=== PATIENT | female | born 1990 | race African-American/Black ===

== ENCOUNTER 2019-08-02 10:12 | Emergency (ER) | payer OTHER, SELFPAY ==
[2019-08-02 10:21] VITALS: BP 140/88; PULSE 92; RESP 21; TEMP 36.9; O2SAT 100
--- NOTE | 2019-08-02 10:28 | ED_ITS ---
I attest that this documentation has been prepared under the direction and in the presence of . Zackery Ricardo Scribe 08/02/19;10:33 HPI - URI/Sore Throat General Chief Complaint: Upper Respiratory Infection Stated Complaint: diarrhea and cough Time Seen by Provider: 08/02/19 10:26 History of Present Illness HPI Narrative: Pt is a 28 y/o female who presents to the ED with c/o a cough that started yesterday. Pt states that she had rhinorrhea yesterday morning and she took some Tylenol and drank a Theraflu. Pt states that her daughter had Flu B and she drank some of her daughter Tamiflu as well. Pt states that last night she was having night sweats and this morning she had diarrhea ay morning0 thought it would make her feel better- drank a theraflu last night sweating diarrhea started this mronign twice no NV or ABD pain myalgia last night no medicine today daughter had flu B smoekr took daughter tamiflu Related Data Allergies Allergy/AdvReac Type Severity Reaction Status Date / Time tomato Allergy Unknown Unknown Verified 08/02/19 10:25 Iodinated Contrast Media Allergy Hives Verified 08/02/19 10:26 [facility] Social History Social History Gender identity (if verbalized by the patient): Female Exam Narrative: Exam Narrative: GENERAL: Well-appearing, well-nourished, and in no acute distress. HEAD: Normocephalic, atraumatic. ENT: Mucous membranes moist. No pharyngeal erythema or tonsillar exudate. NECK: Right anterior cervical chain lymphadenopathy. Nontender. CHEST: Clear to auscultation. No respiratory distress. HEART: Regular rate and rhythm. Normal peripheral pulses. EXTREMITIES: Normal range of motion. No edema. NEURO: Alert and oriented x3. Course Course Emergency Course: Flu B positive. D/c home with tamiflu. Vital Signs Vital signs: Vital Signs Temperature 98.4 F 08/02/19 10:21 Pulse Rate 92 08/02/19 10:21 Respiratory Rate 21 H 08/02/19 10:21 Blood Pressure 140/88 08/02/19 10:21 Pulse Oximetry 100 08/02/19 10:21 Temperature 98.4 F 08/02/19 10:21 Pulse Rate 92 08/02/19 10:21 Respiratory Rate 21 H 08/02/19 10:21 Blood Pressure 140/88 08/02/19 10:21 Pulse Oximetry 100 08/02/19 10:21 MDM - URI/Sore Throat Lab Data Labs: Influenza A Screen Negative Reference Range: Negative Influenza B Screen Positive Reference Range: Negative Discharge Plan Discharge Clinical Impression: Influenza B Patient Disposition: Home, Self-Care Condition: Stable Instructions: Influenza (ED) Additional Instructions: Return the ER if you you cannot keep down food or water, you lose consciousness, you are having difficulty breathing, you have additional concerns. Take Tylenol and ibuprofen for fever and body aches. Prescriptions: New oseltamivir 75 mg capsule 75 mg PO BID Qty: 10 RF: 0 Follow-up/Referrals: Damaso Velazquez MD [Physician] - 1 Week PHYSICIAN,MAINTENANCE AND CUSTODIAN SUPERVISOR [Primary Care Provider] - I personally performed the services described in this documentation. All medical record entries made by the scribe were at my direction and in my presence. I have rev
--- NOTE | 2019-08-02 10:28 | ED.URI ---
HPI - URI/Sore Throat General Chief Complaint: Upper Respiratory Infection Stated Complaint: diarrhea and cough Time Seen by Provider: 08/02/19 10:26 Source: patient Mode of arrival: ambulatory Limitations: no limitations History of Present Illness HPI Narrative: Pt is a 28 y/o female who presents to the ED with c/o a cough that started yesterday. Pt states that she had rhinorrhea yesterday morning and she took some Tylenol and drank a Theraflu. Pt states that her daughter had Flu B and she drank some of her daughter Tamiflu as well. Pt states that last night she was having night sweats and myalgia, and this morning she had diarrhea twice. She denies N/V or ABD pain. Pt did not take any medicine today and she is a smoker. MD elicited complaint: cough Onset (ago): day(s) (1) Consistency: constant Able to tolerate fluids by mouth: Yes Context: sick contacts Associated symptoms: myalgias, rhinorrhea, diarrhea and other (night sweats) Treatments prior to arrival: acetaminophen and other (theraflu and tamiflu) Related Data Allergies Allergy/AdvReac Type Severity Reaction Status Date / Time tomato Allergy Unknown Unknown Verified 08/02/19 10:25 Iodinated Contrast Media Allergy Hives Verified 08/02/19 10:26 Review of Systems Review of Systems: All systems reviewed & are unremarkable except as noted in HPI and below ENT: Reports other (rhinorrhea) Respiratory: Respiratory: Reports cough Gastrointestinal: Gastrointestinal: Denies abdominal pain, Reports diarrhea, Denies nausea and Denies vomiting PMFSH Past Medical History Medical History (Updated 08/02/19 @ 10:46 by Zackery Ricardo) No significant past medical history Surgical History Surgical History (Updated 08/02/19 @ 10:46 by Zackery Ricardo) No significant past surgical history Social History Social History (Updated 08/02/19 @ 10:47 by Zackery Ricardo) Smoking status: Current every day smoker Gender identity (if verbalized by the patient): Female Exam Narrative: Exam Narrative: GENERAL: Well-appearing, well-nourished, and in no acute distress. HEAD: Normocephalic, atraumatic. ENT: Mucous membranes moist. No pharyngeal erythema or tonsillar exudate. NECK: Right anterior cervical chain lymphadenopathy. Nontender. CHEST: Clear to auscultation. No respiratory distress. HEART: Regular rate and rhythm. Normal peripheral pulses. EXTREMITIES: Normal range of motion. No edema. NEURO: Alert and oriented x3. Course Course Emergency Course: Flu B positive. D/c home with tamiflu. Vital Signs Vital signs: Vital Signs Temperature 98.4 F 08/02/19 10:21 Pulse Rate 92 08/02/19 10:21 Respiratory Rate 21 H 08/02/19 10:21 Blood Pressure 140/88 08/02/19 10:21 Pulse Oximetry 100 08/02/19 10:21 Temperature 98.4 F 08/02/19 10:21 Pulse Rate 92 08/02/19 10:21 Respiratory Rate 21 H 08/02/19 10:21 Blood Pressure 140/88 08/02/19 10:21 Pulse Oximetry 100 08/02/19 10:21 MDM - URI/Sore Throat Lab Data Labs: Influenza A Screen Negative Reference Range: Negative Influenza B Screen Positive Reference Range: Negative Discharge Plan Discharge Clinical Impression: Influenza B Patient Disposition: Home, Self-Care Condition: Stable Instructions: Influenza (ED) Additional Instructions: Return the ER if you you cannot keep down food or water, you lose consciousness, you are having difficulty breathing, you have additional concerns. Take Tylenol and ibuprofen for fever and body aches. Prescriptions: New oseltamivir 75 mg capsule 75 mg PO BID Qty: 10 RF: 0 Follow-up/Referrals: Damaso Velazquez MD [Physician] - 1 Week PHYSICIAN,GLUING CREW LEADER [Primary Care Provider] -
[2019-08-02 11:10] VITALS: BP 118/69; PULSE 80; RESP 16; O2SAT 100
== END 2019-08-02 11:12 | disposition home or self-care (01) ==
PROVIDERS: Emergency Provider Emergency Medicine
DX: J11.1 Influenza due to unidentified influenza virus with other respiratory manifestations (principal)
CPT/HCPCS: 87804; 99283

== ENCOUNTER 2020-03-26 08:57 | Outpatient (CLI) | payer OTHER, SELFPAY ==
--- NOTE | 2020-03-26 11:00 | NEURO_ITS ---
Patient Number: [id number] Impression: # Complains of pain in right shoulder joint. # Normal nerve conduction study including F-waves. # Normal needle/EMG exam. # Clinical correlation recommended. Nerve Conduction Studies Anti Sensory Summary Table Stim Site NR Peak (ms) P-T Amp (?V) Site1 Site2 Delta-P (ms) Dist (cm) Haider (m/s) Right Median Anti Sensory (2-3nd Digit) Wrist 2.7 98.4 Wrist 2-3nd Digit 2.7 14.0 52 Wrist 2.6 67.9 Wrist 2-3nd Digit 2.7 14.0 52 Right Radial Anti Sensory (Base 1st Digit) Wrist 2.1 22.0 Wrist Base 1st Digit 2.1 0.0 Right Ulnar Anti Sensory (5th Digit) Wrist 2.1 68.6 Wrist 5th Digit 2.1 14.0 67 Motor Summary Table Stim Site NR Onset (ms) O-P Amp (mV) Site1 Site2 Delta-0 (ms) Dist (cm) Haider (m/s) Right Median Motor (Abd Poll Brev) Wrist 2.9 6.7 Elbow Wrist 5.2 29.0 56 Elbow 8.1 3.5 Right Ulnar Motor (Abd Dig Minimi) Wrist 2.3 4.0 A Elbow Wrist 4.9 29.0 59 A Elbow 7.2 3.2 F Wave Studies NR F-Lat (ms) L-R F-Lat (ms) Right Median (Mrkrs) (Abd Poll Brev) 25.50 Right Ulnar (Mrkrs) (Abd Dig Min) 26.41 EMG Side Muscle Nerve Root Ins Act Fibs Amp Dur Recrt Comment Right 1stDorInt Ulnar C8-T1 Nml Nml Nml Nml Nml Right Ext Indicis Radial (Post Int) C7-8 Nml Nml Nml Nml Nml Right Ext Digitorum Radial (Post Int) C7-8 Nml Nml Nml Nml Nml Right BrachioRad Radial C5-6 Nml Nml Nml Nml Nml Right PronatorTeres Median C6-7 Nml Nml Nml Nml Nml Right Abd Poll Brev Median C8-T1 Nml Nml Nml Nml Nml Right ABD Dig Min Ulnar C8-T1 Nml Nml Nml Nml Nml MTDD
== END 2020-03-26 08:58 | disposition home or self-care (01) ==
PROVIDERS: PCP Family Medicine; Visit Provider Family Medicine
DX: M25.511 Pain in right shoulder (principal)
CPT/HCPCS: 95886; 95909

== ENCOUNTER 2020-04-30 09:00 | Emergency (ER) | payer OTHER, SELFPAY ==
--- NOTE | ~2020-04-30 | XR_ITS ---
EXAMINATION: XR toe 1st LT min 2V EXAM DATE: 04/30/2020 09:31 INDICATION: Hit toe on glass table, laceration, pain. TECHNIQUE: Left 1st toe frontal, lateral and oblique projections obtained and reviewed. There is n o prior study for comparison. FINDINGS: There are no acute left 1st toe fractures or dislocations identified. There is no subcutan eous gas. Probable toe laceration identified. There are no radiopaque foreign bodies. IMPRESSION: No acute osseous findings. Probable laceration. Reviewed, dictated and finalized at location B. ON CREAM WARMER
[2020-04-30 09:05] VITALS: BP 151/91; PULSE 90; RESP 20; TEMP 36.6; O2SAT 96
--- NOTE | 2020-04-30 09:13 | ED.WOUNDLAC ---
HPI - Wound/Laceration General Chief Complaint: Wound/Laceration Stated Complaint: wound to foot Time Seen by Provider: 04/30/20 09:07 Source: patient Mode of arrival: ambulatory Limitations: no limitations History of Present Illness HPI narrative: This is a 29-year-old female that presents the emergency department for laceration to left great toe sustained just prior to arrival. Reports she was moving a table and got the toe caught on something. Reports she noted blood in the sock and then saw she had a cut. Reports throbbing pain to the area. Reports she is up-to-date on tetanus. Denies decreased range of motion or numbness. Related Data Allergies Allergy/AdvReac Type Severity Reaction Status Date / Time tomato Allergy Unknown Unknown Verified 04/30/20 09:18 Iodinated Contrast Media Allergy Hives Verified 04/30/20 09:18 Review of Systems Review of Systems: Narrative: CONSTITUTIONAL: Denies fever SKIN: Reports laceration MUSCULOSKELETAL: Reports joint pain NEUROLOGIC: Denies numbness All systems reviewed & are unremarkable except as noted in HPI and below PMFSH Past Medical History Medical History (Updated 04/30/20 @ 10:36 by Molly Mary PA-C) No significant past medical history Surgical History Surgical History (Updated 08/02/19 @ 10:46 by Zackery Ricardo) No significant past surgical history Social History Social History (Updated 04/30/20 @ 09:15 by Molly Mary PA-C) Smoking status: Former smoker Gender identity (if verbalized by the patient): Female Exam Narrative: Exam Narrative: GENERAL: Well-appearing, well-nourished, and in no acute distress. HEAD: Normocephalic, atraumatic. EYES: EOMI. EXTREMITIES: Normal range of motion. No edema or obvious deformity. Left great toe with 2.5 cm linear laceration into subcutaneous tissue over the distal phalanx SKIN: Warm, dry, no rash. NEURO: No focal deficits. Alert and oriented x3. PSYCH: Normal mood and affect Course Vital Signs Vital signs: Vital Signs Temperature 97.8 F 04/30/20 09:05 Pulse Rate 90 04/30/20 09:05 Respiratory Rate 20 04/30/20 09:05 Blood Pressure 151/91 H 04/30/20 09:05 Pulse Oximetry 96 04/30/20 09:05 Temperature 97.8 F 04/30/20 09:05 Pulse Rate 90 04/30/20 09:05 Respiratory Rate 20 04/30/20 09:05 Blood Pressure 151/91 H 04/30/20 09:05 Pulse Oximetry 96 04/30/20 09:05 Procedures Laceration Laceration 1: Date: 04/30/20 Time: 10:35 Site: lower extremity Side (If applicable): left Size (cm): 2.5 Description: linear Depth: simple, single layer Local Anesthetic: lidocaine 1% Amount of anesthesia used (mL): 3 Pre-repair: irrigated ====== Skin Level ====== Skin layer closed with: nylon Size (cm): 4-0 Number of sutures: 3 Technique: simple, interrupted ====== Subcutaneous Layer ====== ====== Muscle Layer ====== ====== Tendon Layer ====== MDM - Wound/Laceration MDM Narrative Medical decision making narrative: Patient presents the emergency department for laceration of the left first toe sustained just prior to arrival. Patient is up-to-date on tetanus. Wound was irrigated and closed with sutures. Left first toe x-rays without acute osseous abnormalities. Patient was educated on wound care. She is to follow-up with primary care doctor. She was given warnings to return to the ER Imaging Data Radiologist's impression: ITS Impressions Toe X-Ray 04/30/20 09:40 IMPRESSION: No acute osseous findings. Probable laceration. Critical Care Time Critical Care Time Critical Care Time: No Discharge Plan Discharge Clinical Impression: Laceration Patient Disposition: Home, Self-Care Condition: Stable Instructions: Care For Your Stitches (ED), Laceration (ED) Additional Instructions: Return to the emergency department if you experience fe
[2020-04-30] MEDS: IBUPROFEN 600 MG TABLET PO (10:13)
[2020-04-30 10:59] VITALS: BP 157/94; PULSE 78; RESP 18; O2SAT 99
== END 2020-04-30 10:59 | disposition home or self-care (01) ==
PROVIDERS: Emergency Provider Emergency Medicine; PCP Family Medicine
DX: S91.112A Laceration without foreign body of left great toe without damage to nail, initial encounter (principal); Z87.891 Personal history of nicotine dependence; W22.03XA Walked into furniture, initial encounter
CPT/HCPCS: 12001; 73660; 99283; A9270

== ENCOUNTER 2020-06-24 14:03 | Emergency (ER) | payer OTHER, SELFPAY ==
--- NOTE | ~2020-06-24 | XR_ITS ---
EXAMINATION: XR wrist LT 2V DATE: 06/24/2020 14:36 INDICATION: Left wrist pain. TECHNIQUE: 2 views of left wrist were obtained. COMPARISON: None. FINDINGS: Bone alignment is normal. No fracture. Joint spaces are well maintained. IMPRESSION: 1. Normal left wrist. Reviewed, dictated and finalized at location B. NCIAL DEVELOPER IMPRESSION: 1. Normal left wrist.
[2020-06-24 14:04] VITALS: BP 140/82; PULSE 90; RESP 20; TEMP 35.8; O2SAT 98
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
--- NOTE | 2020-06-24 15:12 | PC.NURSE ---
[place] wrap applied to left wrist as ordered.
== END 2020-06-24 15:09 | disposition home or self-care (01) ==
PROVIDERS: Emergency Provider Emergency Medicine; PCP Family Medicine
DX: S66.912A Strain of unspecified muscle, fascia and tendon at wrist and hand level, left hand, initial encounter (principal); S63.502A Unspecified sprain of left wrist, initial encounter; Z87.891 Personal history of nicotine dependence; V86.55XA Driver of 3- or 4- wheeled all-terrain vehicle (ATV) injured in nontraffic accident, initial encounter
CPT/HCPCS: 73100; 99283

== ENCOUNTER 2024-02-18 09:50 | Emergency (ER) | payer OTHER, SELFPAY ==
[2024-02-18 10:00] VITALS: BP 141/80; PULSE 90; RESP 20; TEMP 36.5; O2SAT 98
--- NOTE | 2024-02-18 10:01 | ED.BACK ---
HPI - Back Pain/Injury General Chief Complaint: Back Pain/Injury Stated Complaint: sciatica Time Seen by Provider: 02/18/24 10:00 Source: patient Mode of arrival: ambulatory Limitations: no limitations History of Present Illness HPI Narrative: Patient presents with back pain. States she believes it is sciatica as she has dealt with this before. It initially started on her left but then she had someone help her with stretching on either Tuesday or and now it has developed into her right side. She denies any saddle anesthesia, bowel or bladder incontinence. 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 in [place]. Not on anticoagulation, no abdominal pain, denies IV drug use. She took Tylenol twice but states it did not really help. She has not taken anything for pain today or yesterday. She denies any paresthesias. The last time she had issues sciatica was approximately 1 or 2 years ago. She had already been feeling better at that time when she went to a chiropractor and then she started to feel worse but then had resolution. Related Data Allergies Allergy/AdvReac Type Severity Reaction Status Date / Time tomato Allergy Unknown Unknown Verified 06/24/20 14:10 Iodinated Contrast Media Allergy Hives Verified 06/24/20 14:10 [facility] Past Medical History Medical History (Updated 02/18/24 @ 10:25 by Macy Johnston MD) No significant past medical history Sciatica Surgical History Surgical History (Updated 08/02/19 @ 10:46 by Zackery Ricardo) No significant past surgical history Social History Social History Smoking status: Former smoker Other substance usage details: Denies IV drug use Occupation/Education: occupation Additional occupation/education comments: driver trainer Gender identity (if verbalized by the patient): Female Exam Narrative: GENERAL: Well-appearing, well-nourished, and in no acute distress. HEAD: Normocephalic, atraumatic. EYES: Non injected, non icteric ENT: Nares clear, no rhinorrhea or epistaxis. NECK: Supple. CHEST: Speaking in full sentences. No respiratory distress. HEART: Regular rate and rhythm. ABDOMEN: Soft, nondistended. BACK: Normal curvature. No tenderness to palpation thoracic or lumbar spine which are midline. No paravertebral tenderness. No appreciable muscle spasms. Straight leg test negative bilaterally. Pelvis stable to compression. Mild tenderness to palpation of gluteal muscles which are without significant atrophy or fasciculation. Demonstrates flexion and extension at lumbar spine. EXTREMITIES: Normal range of motion. No lower extremity edema. Patient demonstrates 5/5 bilateral strength with ankle dorsiflexion and plantar flexion, knee extension and flexion, and hip flexion, abduction, and adduction. SKIN: Warm, dry, no rash. NEURO: No focal deficits. Alert and oriented x3. Brisk patellar reflexes symmetrically. Sensation intact throughout bilateral lower extremities. PSYCH: Normal mood and affect. Course Vital Signs Vital signs: Vital Signs Temperature 97.7 F 02/18/24 10:00 Pulse Rate 90 02/18/24 10:00 Respiratory Rate 20 02/18/24 10:00 Blood Pressure 141/80 H 02/18/24 10:00 Pulse Oximetry 98 02/18/24 10:00 Oxygen Delivery Room Air 02/18/24 10:00 Temperature 97.7 F 02/18/24 10:00 Pulse Rate 90 02/18/24 10:00 Respiratory Rate 20 02/18/24 10:00 Blood Pressure 141/80 H 02/18/24 10:00 Pulse Oximetry 98 02/18/24 10:00 Oxygen Delivery Room Air 02/18/24 10:00 MDM - Back Pain/Injury MDM Narrative Medical decision making narrative: Exceedingly pleasant Patient presents with back pain. She is concerned she has sciatica. She has had this previously. Her symptoms started on the left but then were on the right. In the emergency department she is afebrile with acceptable vital signs. Back has no deformiti
[2024-02-18] MEDS: KETOROLAC 30 MG/ML VIAL (*BKC) 15 MG IM (10:22)
[2024-02-18] MEDS: HYDROcodone/acetaminophen (*CRX) 5-325 MG TABLET 1 TAB PO (10:22)
[2024-02-18 11:00] VITALS: BP 143/98; PULSE 89; RESP 18; TEMP 36.5; O2SAT 98
== END 2024-02-18 11:01 | disposition home or self-care (01) ==
PROVIDERS: Emergency Provider Student in an Organized Health Care Education/Training Program; PCP Family Medicine
DX: M54.30 Sciatica, unspecified side (principal); Z87.891 Personal history of nicotine dependence
CPT/HCPCS: 96372; 99283; A9270; J1885